=== PATIENT | female | born 1930 | race American Indian/Alaskan Native ===

== ENCOUNTER 2019-03-02 09:22 | Outpatient (CLI) | payer MEDICARE ==
--- NOTE | 2019-03-02 10:30 | XRay Report ---
LEFT HIP RADIOGRAPHS INDICATION: Left hip pain. COMPARISON: None similar at this institution. FINDINGS: An AP pelvic radiograph with frog-leg projection of the left hip demonstrate right hip arthroplasty. Moderate to severe left hip degenerative narrowing, greatest medially with few subchondral cystlike lucencies. Mild left femoral head degenerative spurring and approximately 4.7 x 0.9 cm linear heterotopic ossification along the neck medially also noted. A 3.3 x 1.3 cm tear-drop shaped left gluteal calcified granuloma also seen. Few small pelvic vascular calcifications. 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 Demineralized bones. CONCLUSION: Left hip osteoarthritis, right hip arthroplasty and few other incidental findings/degenerative changes, as described. Thank you for the opportunity to participate in this patient's care.
== END 2019-03-02 09:23 | disposition home or self-care (01) ==
LOC: SPVIMAG 09:22
PROVIDERS: ATTEND Internal Medicine
DX: M16.12 Unilateral primary osteoarthritis, left hip (principal); Z96.641 Presence of right artificial hip joint